=== PATIENT | female | born 1960 | race Caucasian/White ===

== ENCOUNTER 2022-09-30 11:13 | Inpatient (IN) | payer OTHER, SELFPAY ==
[2022-09-30] VITALS (32 sets, daily range): BP systolic 113–167; BP diastolic 77–104; PULSE 75–89; RESP 15–19; TEMP 36.6–36.7; O2SAT 90–98; BMI 34.5
--- NOTE | 2022-09-30 11:51 | ED_ITS ---
HPI - Abdominal Pain General: Chief Complaint: Abdominal Pain Stated Complaint: acid reflux/abd pains Time Seen by Provider: 09/30/22 11:29 History of Present Illness: 62-year-old female with a history of appendectomy and cholecystectomy who reports abdominal discomfort and belching starting yesterday. Her abdomen has gotten distended and feels like she has a lot of gas. She has continued to have nausea and belching but has not vomited. She was having diarrhea last night but it seems to have stopped this morning. The majority of her pain is periumbilical and epigastric. She has never had anything like this before. Associated Symptoms: Denies chills, dysuria, fever(s), nausea and syncope Review of Systems General: Reports: 10 or more systems reviewed and unremarkable except in HPI and below Const: Denies: fever(s), chills or body aches Eyes: Denies: change in vision ENMT: Denies: throat pain Card: Denies: chest pain, edema or syncope Resp: Denies: dyspnea or productive cough GI: Denies: nausea : Denies: flank pain, dysuria or urinary frequency Musc: Denies: neck pain, back pain, extremity pain or extremity swelling Skin/Breast: Denies: rash or erythema Neuro: Denies: headache(s), numbness in extremities, weakness in extremities, lack of coordination or difficulty walking PFS ED PFSH: Medical History (Updated 09/30/22 @ 17:23 by Erasmo Cerda MD) Asthma HTN (hypertension) Surgical History (Updated 09/30/22 @ 17:11 by Jason Alexander MD) Hx of appendectomy Hx of cholecystectomy Family History (Updated 09/30/22 @ 17:11 by Jason Alexander MD) Other CAD (coronary artery disease) Social History (Updated 09/30/22 @ 17:10 by Jason Alexander MD) Smoking and tobacco status: never smoked Alcohol intake: never Marital status: Physical Exam Const: COMMON NORMALS: no limitations, alert and well nourished EXAM LIMITATIONS: no altered mental status HENMT: COMMON NORMALS: normocephalic, atraumatic and external ears normal HEAD & SCALP: normocephalic and atraumatic EXTERNAL EAR: Yes external ears normal MOUTH: no muffled voice Eye: COMMON NORMALS: EOMs intact bilaterally, conjunctivae normal and no scleral icterus CONJUNCTIVA: Yes conjunctivae normal Neck/C-Spine: COMMON NORMALS: no JVD GENERAL: Yes normal visual inspection and Yes trachea midline Resp: COMMON NORMALS: normal respiratory effort, No use of accessory muscles and clear to auscultation bilaterally AUSCULTATION: clear to auscultation bilaterally Cardio: COMMON NORMALS: no JVD, regular rate and regular rhythm RATE: regular rate RHYTHM: regular rhythm GI: OTHER: Abdominal distention, tympany to percussion, generalized tenderness worse in the periumbilical region, diminished bowel sounds, no rebound tenderness Extremity: COMMON NORMALS: normal to inspection Neuro: COMMON NORMALS: moves all extremities, no focal motor deficits and no sensory deficits noted SENSORIUM/ORIENTATION: Yes alert SPEECH: speech normal Psych: COMMON NORMALS: mental status grossly normal, Normal thought process present, cooperative, normal affect and speech normal SPEECH: Yes normal speech THOUGHT PROCESS: Normal thought process present Skin: COMMON NORMALS: no rashes or lesions noted, turgor normal and no jaundice GENERAL SKIN EXAM: no rashes or lesions noted and turgor normal Course Vital Signs: Vital signs: Vital Signs Temperature 97.9 F 09/30/22 11:21 Pulse Rate 89 09/30/22 11:21 Respiratory Rate 18 09/30/22 13:02 Blood Pressure 142/102 09/30/22 15:45 Pulse Oximetry 97 09/30/22 15:45 Oxygen Delivery Me thod Nasal Cannula 09/30/22 13:02 Oxygen Flow Rate 1 09/30/22 13:02 MDM - Abdominal Pain Medical Decision Making 62-year-old female presents the emergency department with abdominal pain that is concerning for bowel obstruction or partial obstruction. Her risk factors would be obesity, previous cholecystectomy and appendectomy surgeries. She does not have any chronic abdominal pain and has no history of the same. I have reviewed the patient's labs. I performed a CT scan of the abdomen and pelvis. There are signs of a developing small bowel obstruction. I consulted with general surgery, Dr. Tyler. He has recommended IV fluids, n.p.o., nasogastric decompression. I then talked with the hospitalist who is going to admit the patient. Lab Data 09/30/22 12:00 09/30/22 12:00 Labs/Radiology: Radiology Impressions Abdomen/Pelvis CT 09/30/22 14:00 IMPRESSION: 1. Small bowel obstruction with transition point in the ileum LEFT lower quadrant suspicious for adhesions or internal hernia 2. Moderate dilatation of the proximal small bowel loops measuring up to 3.3 cm. Contrast distended stomach with air-fluid levels. 3. Colon is decompressed. 4. Small amount of free fluid in the pelvis. 5. Prior cholecystectomy. 6. No other acute findings. Laboratory Results WBC 12.1 10^3/uL (4.0-10.0) H 09/30/22 12:00 RBC 5.90 10^6/uL (4.1-5.3) H 09/30/22 12:00 Hgb 16.6 g/dL (11.5-15.3) H 09/30/22 12:00 Hct 52.0 % (37.0-47.0) H 09/30/22 12:00 MCV 88.1 fl (81-99) 09/30/22 12:00 MCH 28.1 pg (28.0-34.0) 09/30/22 12:00 MCHC 31.9 g/dL (30.0-36.0) 09/30/22 12:00 RDW 13.4 % (12.1-15.1) 09/30/22 12:00 Plt Count 254 10^3/cmm (130-400) 09/30/22 12:00 MPV 10.0 fL (7.4-10.4) 09/30/22 12:00 Neut % (Auto) 82.6 % 09/30/22 12:00 Lymph % (Auto) 10.8 % 09/30/22 12:00 [place] % (Auto) 5.9 % 09/30/22 12:00 Eos % (Auto) 0.3 % 09/30/22 12:00 Baso % (Auto) 0.2 % 09/30/22 12:00 Neut # (Auto) 9.98 10^3/uL (1.8-7.7) H 09/30/22 12:00 Lymph # (Auto) 1.3 10^3/uL (0.8-4.8) 09/30/22 12:00 [place] # (Auto) 0.7 10^3/uL (0.2-0.9) 09/30/22 12:00 Eos # (Auto) 0.0 10^3/uL (0.0-0.8) 09/30/22 12:00 Baso # (Auto) 0.0 10^3/uL (0.0-0.1) 09/30/22 12:00 Nucleated RBC % (auto) 0 % 09/30/22 12:00 Nucleated RBCs # 0.0 /100WBC 09/30/22 12:00 Sodium 137 mmol/L (136-145) 09/30/22 12:00 Potassium 4.5 mmol/L (3.5-5.1) 09/30/22 12:00 Chloride 101 mmol/L (98-107) 09/30/22 12:00 Carbon Dioxide 25 mmol/L (22-29) 09/30/22 12:00 Anion Gap 15.5 (5-19) 09/30/22 12:00 BUN 14 mg/dL (8-23) 09/30/22 12:00 Creatinine 0.9 mg/dL (0.5-0.9) 09/30/22 12:00 GFR Calculation 63.2 mL/min (90-130) L 09/30/22 12:00 Glucose 119 mg/dL (65-115) H 09/30/22 12:00 Calculated Osmolality 286 mOsm/kg (285-295) 09/30/22 12:00 Calcium 10.7 mg/dL (8.5-10.5) H 09/30/22 12:00 Total Bilirubin 0.5 mg/dL (0.15-1.2) 09/30/22 12:00 AST 13 U/L (0-32) 09/30/22 12:00 ALT 15 U/L (0-33) 09/30/22 12:00 Alkaline Phosphatase 88 U/L (35-105) 09/30/22 12:00 Total Protein 7.7 g/dL (6.6-8.7) 09/30/22 12:00 Albumin 4.1 g/dL (3.5-5.2) 09/30/22 12:00 Globulin 3.6 g/dL (1.3-4.6) 09/30/22 12:00 Lipase 18 U/L (13-60) 09/30/22 12:00 Discharge Plan Discharge Patient Disposition: Admitted As Inpatient Clinical Impression: Small bowel obstruction Condition: Stable Coding Level of Care Code ED [employer] Developer for Gatito Coleman
[2022-09-30 12:11] LABS: Basophils % 0.2 %; Eosinophils % 0.3 %; Hemoglobin 16.6 g/dL (11.5-15.3); Lymphocytes # 1.3 10^3/uL (0.8-4.8); Lymphocytes % 10.8 %; Mean Corpuscular HGB Conc 31.9 g/dL (30.0-36.0); Mean Corpuscular Hemoglobin 28.1 pg (28.0-34.0); Mean Corpuscular Volume 88.1 fl (81-99); Monocytes # 0.7 10^3/uL (0.2-0.9); Monocytes % 5.9 %; Neutrophils # 9.98 10^3/uL (1.8-7.7); Neutrophils % 82.6 %; Nucleated Red Blood Cells % 0 %; Platelet Count 254 10^3/cmm (130-400); Red Cell Distribution Width 13.4 % (12.1-15.1); White Blood Count 12.1 10^3/uL (4.0-10.0)
[2022-09-30] MEDS: morphine 4 mg/mL SDV 1 mL IVP (12:12)
[2022-09-30] MEDS: ondansetron 2 mg/ML SDV 2 mL 4 MG IVP (12:12)
[2022-09-30 12:33] LABS: Alanine Aminotransferase 15 U/L (0-33); Albumin Level 4.1 g/dL (3.5-5.2); Alkaline Phosphatase 88 U/L (35-105); Anion Gap 15.5 (5-19); Aspartate Amino Transferase 13 U/L (0-32); Blood Urea Nitrogen 14 mg/dL (8-23); Calcium 10.7 mg/dL (8.5-10.5); Carbon Dioxide 25 mmol/L (22-29); Chloride 101 mmol/L (98-107); Globulin 3.6 g/dL (1.3-4.6); Glomerular Filtration Rate 63.2 mL/min (90-130); Glucose 119 mg/dL (65-115); Lipase 18 U/L (13-60); Osmolality Calculated 286 mOsm/kg (285-295); Potassium 4.5 mmol/L (3.5-5.1); Sodium 137 mmol/L (136-145); Total Bilirubin 0.5 mg/dL (0.15-1.2); Total Protein 7.7 g/dL (6.6-8.7)
[2022-09-30] MEDS: iohexol 350 mg/mL 500 mL Btl (per mL) PO (13:05)
--- NOTE | 2022-09-30 14:00 | CT_ITS ---
WS: [id number] CT ABDOMEN PELVIS TECHNIQUE: Contrast-enhanced CT of the abdomen and pelvis with coronal and sagittal reformatted image s. CLINICAL INFORMATION: distention, belching, diarrhea, eval partial obstruction COMPARISON: None. DLP: 890.[address] scans at [facility] use at least one of these dose optimization techniques: automated e xposure control; mA and/or kV adjustment per patient size (includes targeted exams where dose is matc hed to clinical indication); or iterative reconstruction. FINDINGS: Distended contrast-filled stomach with air-fluid levels. Evidence of partial small bowel obstruction with moderate dilatation of the proximal small bowel loops with mild wall thickening and submucosal e nhancement. Small bowel loops measure up to 3.3 cm in maximum dimension. No pneumatosis or free air. Transition point in the ileum to more normal caliber small bowel with adjacent fluid suspicious for a dhesions or internal hernia. Axial imaging series 3 image 47 and coronal imaging series 5 image 20 Colon is decompressed. Normal ileocecal valve. Small amount of free fluid in the pelvis. Diffuse fatty infiltration liver. Prior cholecystectomy. Normal portal vein and splenic vein. Mild fa tty atrophy of the pancreas. Normal spleen. Lung bases are well aerated. Small noncalcified nodule RI GHT lower lobe measuring 4.5 mm. Adrenal glands are normal. Normal renal parenchymal enhancement. Mild cortical atrophy. Normal calibe r abdominal aorta. Celiac and SMA are patent. CT/CT abdomen pelvis w con* [id number] IMPRESSION: 1. Small bowel obstruction with transition point in the ileum LEFT lower quadr ant suspicious for adhesions or internal hernia 2. Moderate dilatation of the proximal small bowel loops measuring up to 3.3 c m. Contrast distended stomach with air-fluid levels. 3. Colon is decompressed. 4. Small amount of free fluid in the pelvis. 5. Prior cholecystectomy. 6. No other acute findings.
[2022-09-30] MEDS: iohexol 350 mg/mL 500 mL Btl (per mL) IV (14:27)
[2022-09-30] MEDS: LORazepam 2 mg/mL INJ 1 mL 0.5 MG IVP (16:42)
[2022-09-30] MEDS: fentaNYL 50 mcg/mL INJ 2mL IVP (16:42)
[2022-09-30] MEDS: sodium chloride 0.9% 1,000 ML 125 ML IV (16:43)
--- NOTE | 2022-09-30 20:50 | PM.HP ---
Providers/Chief Complaint Admitting Physician: Jason Alexander Primary Care Provider: Ismael Mustafa DO Chief Complaint: acid reflux/abd pains History of Present Illness Pleasant 62-year-old lady with remote history of cholecystectomy, appendectomy since Wednesday experiencing abdominal distention, nausea, abdominal pain, also had some diarrhea black in color but this has resolved. CT in ER showing small bowel obstruction with transition point in ileum in the left lower quadrant, moderate dilation of proximal small bowel loops measuring 3.3 cm. Contrast distended stomach with air-fluid levels. Colon decompressed. Small amount of free fluid in pelvis. Prior cholecystectomy. Surgery was consulted and NG tube placed in ER. She is currently without any major pain or discomfort. Some nausea. Has not vomited. Review of Systems Const: Denies: fever(s), chills, body aches or malaise ENMT: Denies: throat pain or ear or mastoid pain Card: Denies: chest pain, edema, pre-syncope or dyspnea on exertion Resp: Denies: dyspnea, productive cough, change in phlegm color or hemoptysis GI: Denies: abdominal pain, nausea, vomiting, diarrhea, constipation, hematochezia or melena : Denies: flank pain, urinary frequency or hematuria Musc: Denies: back pain, joint swelling or joint redness Skin/Breast: Denies: rash or new lesions Neuro: Denies: headache(s) Endo: Denies: polyuria or polydipsia Medications/Allergies Home Medications Medication Instructions Recorded Confirmed Last Taken Type acetaminophen 500 mg tablet 500 mg PO Q6H PRN Pain 09/30/22 09/30/22 Unknown History amoxicillin 875 mg-potassium 1 tab PO BID 09/30/22 09/30/22 Unknown History clavulanate 125 mg tablet coffee extract 100 mg-phosphatidyl 1 cap PO QAM 09/30/22 09/30/22 Unknown History serine 100 mg capsule (Neuriva Original) cyanocobalamin (vitamin B-12) 1,000 mcg PO DAILY 09/30/22 09/30/22 1 Week Ago History 1,000 mcg tablet (Vitamin B-12) ~09/23/22 fluticasone 250 mcg-salmeterol 50 1 inh inhalation BID 09/30/22 09/30/22 Unknown History mcg/dose blistr powdr for inhalation (Advair Diskus) multivitamin 1 tab PO DAILY 09/30/22 09/30/22 09/26/22 History turmeric 400 mg capsule 800 mg PO DAILY 09/30/22 09/30/22 Unknown History vitamin B complex 1 tab PO DAILY 09/30/22 09/30/22 Unknown History Allergies Allergy/AdvReac Type Severity Reaction Status Date / Time No Known Allergies Allergy Verified 09/30/22 12:43 PFSH Acute PFSH: Medical History Asthma HTN (hypertension) Surgical History Hx of appendectomy Hx of cholecystectomy Family History Other CAD (coronary artery disease) Social History Smoking and tobacco status: never smoked Alcohol intake: never Marital status: Vitals/I&O/Wt Last Vital Signs Temp 97.9 F 09/30/22 11:21 Pulse 89 09/30/22 11:21 Resp 18 09/30/22 13:02 BP 122/81 09/30/22 20:00 Pulse Ox 95 09/30/22 20:00 O2 Del Method Nasal Cannula 09/30/22 20:21 O2 Flow Rate 1 09/30/22 13:02 09/30/22 09/30/22 09/30/22 06:59 14:59 22:59 Intake Total 1000 / 1000 Balance 1000 / 1000 Weight last 48 hrs Weight 88.451 kg Physical Exam Const: COMMON NORMALS: patient oriented x3 and alert GENERAL APPEARANCE: cooperative ORIENTATION/CONSCIOUSNESS: Yes awake HENMT: COMMON NORMALS: oropharynx normal Neck/C-Spine: COMMON NORMALS: no JVD Resp: COMMON NORMALS: normal respiratory effort and clear to auscultation bilaterally AUSCULTATION: clear to auscultation bilaterally Cardio: COMMON NORMALS: no JVD, regular rhythm, S1 normal heart sound present, S2 normal heart sound present and No murmurs present (Cardio) RHYTHM: regular rhythm HEART SOUNDS: S1 normal heart sound present and S2 normal heart sound present GI: COMMON NORMALS: Normal to inspection, nondistended, normoactive bowel sounds present and Soft to palpation INSPECTION: Yes abdominal distension PALPATION: Yes Soft to palpation and Yes Other GI palpation findings present (Minimal tenderness on palpation) Extremity: COMMON NORMALS: no joint enlargement and no pedal edema Neuro: COMMON NORMALS: patient oriented x3 and moves all extremities SENSORIUM/ORIENTATION: Yes alert Skin: COMMON NORMALS: no rashes or lesions noted GENERAL SKIN EXAM: no rashes or lesions noted Data 09/30/22 12:00 09/30/22 12:00 A&P Assessment and plan (1) Small bowel obstruction: Surgery consultation. Bowel rest. NGT decompression. IVF. Antiemetic, pain medication. Discussed with her smaller concern for possibility of volvulus with black diarrhea, discussed with her reason for concern if it were volvulus, she will let us know in case any worsening of symptoms or return of diarrhea which so far she has not had. Currently tenderness is minimal. Leukocytosis without any other signs of sepsis. Lactate requested. Discussed with ER physician, surgery. ER documentation reviewed. No vomiting. Electrolytes noted WNL. Renal function noted WNL. Liver parameters WNL. Lipase WNL. Follow-up CBC, chemistry given on NGT at risk of electrolyte abnormality. Cardiac monitoring. Plan HTN: Currently NPO. Monitor blood pressures. Does not appear to be on HTN medications at home. Currently blood pressure at target. Asthma: Budesonide. Albuterol nebs as needed. Not in exacerbation. Attestations Medical Necessity Statement*: Admission of over 2 midnights anticipated for assessment management of SBO. Diagnoses Small bowel obstruction K56.609
--- NOTE | 2022-09-30 22:00 | XRR_ITS ---
PROCEDURE INFORMATION: Exam: XR Chest Exam date and time: 09/30/2022 9:57 PM Age: 62 years old Clinical indication: Device placement; Ng tube; Additional info: Ngt placement TECHNIQUE: Imaging protocol: Radiologic exam of the chest. Views: 1 view. COMPARISON: CT abdomen pelvis w con* [id number] 09/30/2022 2:26 PM FINDINGS: Tubes, catheters and devices: A nasogastric tube ends the stomach. Lungs: Unremarkable. No consolidation. Pleural spaces: Unremarkable. No pleural effusion. No pneumothorax. Heart/Mediastinum: Unremarkable. No cardiomegaly. Bones/joints: Unremarkable. XR/XR chest 1V portable [id number] IMPRESSION: NG tube ends in the stomach
[2022-10-01] VITALS (9 sets, daily range): BP systolic 117–149; BP diastolic 71–86; PULSE 58–85; RESP 15–18; TEMP 36.7–36.9; O2SAT 92–98
[2022-10-01] MEDS: sodium chloride 0.9% 1,000 ML 125 ML IV ×3 (00:16→16:55)
[2022-10-01 05:06] LABS: Basophils % 0.4 %; Eosinophils # 0.2 10^3/uL (0.0-0.8); Eosinophils % 2.2 %; Hematocrit 46.4 % (37.0-47.0); Hemoglobin 14.3 g/dL (11.5-15.3); Lymphocytes # 1.3 10^3/uL (0.8-4.8); Lymphocytes % 17.8 %; Mean Corpuscular HGB Conc 30.8 g/dL (30.0-36.0); Mean Corpuscular Hemoglobin 27.9 pg (28.0-34.0); Mean Corpuscular Volume 90.6 fl (81-99); Mean Platelet Volume 10.1 fL (7.4-10.4); Monocytes # 0.7 10^3/uL (0.2-0.9); Monocytes % 9.2 %; Neutrophils # 5.05 10^3/uL (1.8-7.7); Neutrophils % 70.3 %; Nucleated Red Blood Cells % 0 %; Platelet Count 202 10^3/cmm (130-400); Red Blood Count 5.12 10^6/uL (4.1-5.3); Red Cell Distribution Width 13.3 % (12.1-15.1); White Blood Count 7.2 10^3/uL (4.0-10.0)
[2022-10-01 05:23] LABS: Alanine Aminotransferase 15 U/L (0-33); Albumin Level 3.1 g/dL (3.5-5.2); Alkaline Phosphatase 70 U/L (35-105); Aspartate Amino Transferase 14 U/L (0-32); Blood Urea Nitrogen 12 mg/dL (8-23); Calcium 9.3 mg/dL (8.5-10.5); Carbon Dioxide 21 mmol/L (22-29); Chloride 102 mmol/L (98-107); Glomerular Filtration Rate 72.4 mL/min (90-130); Glucose 86 mg/dL (65-115); Osmolality Calculated 277 mOsm/kg (285-295); Sodium 134 mmol/L (136-145); Total Bilirubin 0.5 mg/dL (0.15-1.2); Total Protein 6.1 g/dL (6.6-8.7)
[2022-10-01 05:24] LABS: Anion Gap 15.8 (5-19); Potassium 4.8 mmol/L (3.5-5.1)
--- NOTE | 2022-10-01 11:58 | PM.CONSULT ---
Providers/Reason For Consult Consulting Physician/Specialty*: Dr. Sheldon Tyler DO/General surgery Reason for Consult*: Small bowel obstruction Attending Physician: Jason Alexander Primary Care Provider: Ismael Mustafa DO History of Present Illness History of Present Illness Ruthie López is a 62 year old female with a history of cholecystectomy and appendectomy about 20 years ago, who presented to the hospital with 1 day history of abdominal pain and nausea. She denies any emesis. She reports that she has not passed any flatus or had a bowel movement since yesterday. Her last bowel movement was dark but she denies any hematochezia and/or melena. Her abdominal pain is diffuse and dull and constant. Palpation makes pain worse. Nothing makes pain better. Review of Systems General: Reports: 10 or more systems reviewed and unremarkable except in HPI and below Medications/Allergies Home Medications Medication Instructions Recorded Confirmed Last Taken Type acetaminophen 500 mg tablet 500 mg PO Q6H PRN Pain 09/30/22 09/30/22 Unknown History amoxicillin 875 mg-potassium 1 tab PO BID 09/30/22 09/30/22 Unknown History clavulanate 125 mg tablet coffee extract 100 mg-phosphatidyl 1 cap PO QAM 09/30/22 09/30/22 Unknown History serine 100 mg capsule (Neuriva Original) cyanocobalamin (vitamin B-12) 1,000 mcg PO DAILY 09/30/22 09/30/22 1 Week Ago History 1,000 mcg tablet (Vitamin B-12) ~09/23/22 fluticasone 250 mcg-salmeterol 50 1 inh inhalation BID 09/30/22 09/30/22 Unknown History mcg/dose blistr powdr for inhalation (Advair Diskus) multivitamin 1 tab PO DAILY 09/30/22 09/30/22 09/26/22 History turmeric 400 mg capsule 800 mg PO DAILY 09/30/22 09/30/22 Unknown History vitamin B complex 1 tab PO DAILY 09/30/22 09/30/22 Unknown History Allergies Allergy/AdvReac Type Severity Reaction Status Date / Time No Known Allergies Allergy Verified 09/30/22 12:43 Current Medications Generic Name Dose Route Start Last Admin Trade Name Freq PRN Reason Stop Dose Admin Sodium Chloride 1,000 mls @ 125 mls/hr 09/30/22 16:00 10/01/22 08:54 Sodium Chloride 0.9% IV 125 mls/hr .Q8H NIURKA Administration PFSH Acute PFSH: Medical History Asthma HTN (hypertension) Surgical History Hx of appendectomy Hx of cholecystectomy Family History Other CAD (coronary artery disease) Social History Smoking and tobacco status: never smoked Alcohol intake: never Marital status: Vitals/I&O/Wt Last Vital Signs Temp 98.2 F 10/01/22 11:46 Pulse 69 10/01/22 11:46 Resp 16 10/01/22 11:46 BP 129/84 10/01/22 11:46 Pulse Ox 93 10/01/22 11:46 O2 Del Method Nasal Cannula 10/01/22 11:46 O2 Flow Rate 2 10/01/22 03:54 09/30/22 10/01/22 10/01/22 22:59 06:59 14:59 Intake Total 1000 / 1000 1000 / 1000 Output Total 170 / 172 170 / 170 Balance 998 / 998 -170 / 828 830 / 830 Weight last 48 hrs Weight 195 lb Physical Exam Narrative: General : Patient is well developed , no acute distress, oriented x3 Head : Normal cephalic, a-traumatic. Ears : Pinnae and external canal are normal. Hearing is normal. Eyes : PERRLA, Sclera and injection are normal. No conjunctival discharge. Nose : Mucous membranes are without erythema. Throat : buccal mucosa is normal, gums are without significant recession or hypertrophy. Lungs : Equal chest rise bilaterally, no use of accessory muscles, trachea is midline. Cor : Rate and rhythm are normal. Abdomen : Soft, mild distention, mild periumbilical tenderness, no g/r/m Extremities : No edema, no cyanosis or clubbing, dorsalis pedis pulses are present bilaterally, non-tender to palpation of calves. Upper extremities are normal bilaterally. Back : non-tender to palpation, no CVA tenderness. Neuro : CN II - XII intact, Upper and lower extremities have equal and full strength Data 10/01/22 04:29 10/01/22 04:29 A&P Assessment and plan (1) Small bowel obstruction: Plan N.p.o. NGT to low intermittent suction IV fluids to 150 cc/h Medical management per hospitalist Conservative management for now. If patient does not open up in the next couple of days, we will have to consider surgery. Coding Level of Care Code Acute Code for Chg Fwd Diagnoses Small bowel obstruction K56.609
--- NOTE | 2022-10-01 12:31 | PC.CHAP ---
Pastoral Care Encounter/Spiritual Assessment Type of Contact [] Declined metal grinder visit [] Patient/Family/Request visit [] Outpatient visit [x] Follow-up visit [] Physician referral [] Code/Alert [] Routine visit [] Staff referral [] Actively dying [] Patient sleeping [] Family support [] [] Out of room [] Palliative care [] [] Receiving care in room [] Pre-surgical visit [] Trauma [] Long length of stay [] ICU visit [] Other: Relational/Emotional Strength [] Patient feels connected with others/family/visitors/staff [] Distress [] Loneliness/isolation [] Abandonment Spirituality of Patient [] Person of Christine [] Attends Judaism of their Christine [] Believes in Prayer [] Reads Bible or Baptist materials [] There are Spiritual issues to be addressed [place] Interventions [] Prayer [] Active listening [] Non-anxious presence [] Spiritual/emotional support [] Crisis/trauma care [] Spiritual counseling [] Bereavement support [] Provided bereavement packet [] Provided Bible/devotional materials [] Provided toy/stuffed animal, coloring book to patient or family member [] Provided Communion [] Anointing/[place] [] Salvation [] Completed spiritual assessment [] Other: Impact on Illness or Injury [] Angry [] Fearful [] Anxious [] Often cries [] Exhaustion [] Unable to work [] Unable to attend orthodox [] Unable to walk/stand [] Unable to read [] Unable to drive [] Unable to eat/drink [] Unable to sleep [] Unable to be with family [] Patient intubated [] Other: Summary Follow-up visit a sleep Time spent with patient 10 mins
--- NOTE | 2022-10-01 21:40 | PM.PN ---
Subjective Subjective: Was seen and assessed by surgery and discussed management options. She is feeling better today. Abdominal pain improved. Still belching quite a bit. No gas from below. Vitals/I&O/Wt Last Vital Signs Temp 98.4 F 10/01/22 19:06 Pulse 71 10/01/22 19:06 Resp 16 10/01/22 19:06 BP 132/80 10/01/22 19:06 Pulse Ox 96 10/01/22 19:06 O2 Del Method Nasal Cannula 10/01/22 19:06 O2 Flow Rate 2 10/01/22 19:30 10/01/22 10/01/22 10/01/22 06:59 14:59 22:59 Intake Total 1000 / 1000 1000 / 2000 Output Total 170 / 172 170 / 170 500 / 670 Balance -170 / 828 830 / 830 500 / 1330 Weight last 48 hrs Weight 88.451 kg Physical Exam Const: COMMON NORMALS: patient oriented x3, no limitations, alert and well nourished EXAM LIMITATIONS: no altered mental status GENERAL APPEARANCE: cooperative ORIENTATION/CONSCIOUSNESS: Yes awake HENMT: COMMON NORMALS: normocephalic, atraumatic and oropharynx normal HEAD & SCALP: normocephalic and atraumatic Eye: COMMON NORMALS: EOMs intact bilaterally, conjunctivae normal and no scleral icterus CONJUNCTIVA: Yes conjunctivae normal Neck/C-Spine: COMMON NORMALS: no JVD GENERAL: Yes normal visual inspection Resp: COMMON NORMALS: normal respiratory effort, No use of accessory muscles and clear to auscultation bilaterally AUSCULTATION: clear to auscultation bilaterally Cardio: COMMON NORMALS: no JVD, regular rate, regular rhythm, S1 normal heart sound present, S2 normal heart sound present and No murmurs present (Cardio) RATE: regular rate RHYTHM: regular rhythm HEART SOUNDS: S1 normal heart sound present and S2 normal heart sound present GI: COMMON NORMALS: Normal to inspection, nondistended, normoactive bowel sounds present and Soft to palpation INSPECTION: Yes abdominal distension PALPATION: Yes Soft to palpation and Yes Other GI palpation findings present (Minimal tenderness on palpation) Extremity: COMMON NORMALS: normal to inspection, no joint enlargement and no pedal edema Neuro: COMMON NORMALS: patient oriented x3, moves all extremities, no focal motor deficits and no sensory deficits noted SENSORIUM/ORIENTATION: Yes alert SPEECH: speech normal Psych: COMMON NORMALS: mental status grossly normal, Normal thought process present, cooperative, normal affect and speech normal SPEECH: Yes normal speech THOUGHT PROCESS: Normal thought process present Skin: COMMON NORMALS: no rashes or lesions noted, turgor normal and no jaundice GENERAL SKIN EXAM: no rashes or lesions noted and turgor normal Data 10/01/22 04:29 10/01/22 04:29 A&P Assessment and plan (1) Small bowel obstruction: Surgery discussion and documentation appreciated. Continue bowel rest, decompression, she might try to ambulate today. IV hydration support. Antiemetic, pain control as needed. Leukocytosis noted resolved, WBC 7.2. Hemoglobin with slight decrease to 14.3, suspect dilutional decrease. At risk of electrolyte deficiencies with NGT suction. Follow-up chemistry requested. Check magnesium. Cardiac monitoring. Plan HTN: Currently NPO.? Monitor blood pressures.? Does not appear to be on HTN medications at home.? Currently blood pressure at target. Asthma: Add budesonide.? Albuterol nebs as needed.? Not in exacerbation. Attestations Medical Necessity Statement*: Continue admission for assessment management of SBO Diagnoses Small bowel obstruction K56.609
[2022-10-02] VITALS (9 sets, daily range): BP systolic 134–146; BP diastolic 78–85; PULSE 66–81; RESP 12–20; TEMP 36.5–37.1; O2SAT 92–95
[2022-10-02] MEDS: sodium chloride 0.9% 1,000 ML 125 ML IV ×2 (01:13→07:46)
[2022-10-02 02:06] LABS: Basophils % 0.4 %; Eosinophils # 0.2 10^3/uL (0.0-0.8); Eosinophils % 1.9 %; Hematocrit 40.9 % (37.0-47.0); Hemoglobin 12.9 g/dL (11.5-15.3); Lymphocytes # 1.4 10^3/uL (0.8-4.8); Lymphocytes % 16.9 %; Mean Corpuscular HGB Conc 31.5 g/dL (30.0-36.0); Mean Corpuscular Hemoglobin 28.5 pg (28.0-34.0); Mean Corpuscular Volume 90.5 fl (81-99); Mean Platelet Volume 9.7 fL (7.4-10.4); Monocytes # 0.6 10^3/uL (0.2-0.9); Monocytes % 6.9 %; Neutrophils # 5.91 10^3/uL (1.8-7.7); Neutrophils % 73.7 %; Nucleated Red Blood Cells % 0 %; Platelet Count 176 10^3/cmm (130-400); Red Blood Count 4.52 10^6/uL (4.1-5.3); Red Cell Distribution Width 13.2 % (12.1-15.1)
[2022-10-02 02:30] LABS: Alanine Aminotransferase 14 U/L (0-33); Albumin Level 3.2 g/dL (3.5-5.2); Alkaline Phosphatase 64 U/L (35-105); Anion Gap 14.3 (5-19); Aspartate Amino Transferase 12 U/L (0-32); Blood Urea Nitrogen 12 mg/dL (8-23); Calcium 8.9 mg/dL (8.5-10.5); Carbon Dioxide 25 mmol/L (22-29); Chloride 104 mmol/L (98-107); Globulin 2.1 g/dL (1.3-4.6); Glomerular Filtration Rate 84.5 mL/min (90-130); Glucose 68 mg/dL (65-115); Osmolality Calculated 286 mOsm/kg (285-295); Potassium 4.3 mmol/L (3.5-5.1); Sodium 139 mmol/L (136-145); Total Bilirubin 0.5 mg/dL (0.15-1.2); Total Protein 5.3 g/dL (6.6-8.7)
--- NOTE | 2022-10-02 16:06 | PM.PN ---
Subjective Subjective: Patient now passing flatus and had a small bowel movement this morning. Vitals/I&O/Wt Last Vital Signs Temp 98.3 F 10/02/22 15:37 Pulse 71 10/02/22 15:37 Resp 16 10/02/22 15:37 BP 142/81 10/02/22 15:37 Pulse Ox 95 10/02/22 15:37 O2 Del Method Room Air 10/02/22 15:37 O2 Flow Rate 2 10/02/22 08:00 10/02/22 10/02/22 10/02/22 06:59 14:59 22:59 Intake Total 1000 / 3000 818.75 / 818.75 1000 / 1818.75 Output Total 700 / 1370 Balance 300 / 1630 818.75 / 818.75 1000 / 1818.75 Physical Exam Narrative: General: No acute distress, awake alert and oriented x3 Abdomen: Soft, nontender, nondistended, no guarding rebound or masses Data 10/02/22 01:56 10/02/22 01:56 Micro: Microbiology 10/02/22 07:05 Occult Blood (FIT) - Final Stool Routine Collection A&P Assessment and plan (1) Small bowel obstruction: Plan DC NG tube Clear liquid diet IV fluids to 150 cc/h Medical management per hospitalist Conservative management for now. If patient does not open up in the next couple of days, we will have to consider surgery. Attestations Medical Necessity Statement*: Per primary Coding Level of Care Code Acute Code for Chg Fwd Diagnoses Small bowel obstruction K56.609
--- NOTE | 2022-10-02 18:25 | PM.PN ---
Subjective Subjective: Had a small BM this morning. Reports passing flatus. She has been ambulating multiple times a day. Vitals/I&O/Wt Last Vital Signs Temp 98.3 F 10/02/22 15:37 Pulse 71 10/02/22 15:37 Resp 16 10/02/22 15:37 BP 142/81 10/02/22 15:37 Pulse Ox 95 10/02/22 15:37 O2 Del Method Room Air 10/02/22 15:37 O2 Flow Rate 2 10/02/22 08:00 10/02/22 10/02/22 10/02/22 06:59 14:59 22:59 Intake Total 1000 / 3000 818.75 / 818.75 1000 / 1818.75 Output Total 700 / 1370 Balance 300 / 1630 818.75 / 818.75 1000 / 1818.75 Physical Exam Const: COMMON NORMALS: patient oriented x3 and alert GENERAL APPEARANCE: cooperative ORIENTATION/CONSCIOUSNESS: Yes awake HENMT: COMMON NORMALS: oropharynx normal Neck/C-Spine: COMMON NORMALS: no JVD Resp: COMMON NORMALS: normal respiratory effort and clear to auscultation bilaterally AUSCULTATION: clear to auscultation bilaterally Cardio: COMMON NORMALS: no JVD, regular rhythm, S1 normal heart sound present, S2 normal heart sound present and No murmurs present (Cardio) RHYTHM: regular rhythm HEART SOUNDS: S1 normal heart sound present and S2 normal heart sound present GI: COMMON NORMALS: Soft to palpation and non-tender PALPATION: Yes Soft to palpation OTHER: Mild distention Extremity: COMMON NORMALS: no joint enlargement and no pedal edema Neuro: COMMON NORMALS: patient oriented x3 and moves all extremities SENSORIUM/ORIENTATION: Yes alert Skin: COMMON NORMALS: no rashes or lesions noted GENERAL SKIN EXAM: no rashes or lesions noted Data 10/02/22 01:56 10/02/22 01:56 Micro: Microbiology 10/02/22 07:05 Occult Blood (FIT) - Final Stool Routine Collection A&P Assessment and plan (1) Small bowel obstruction: Still having output from NG, but producing flatus and had a small BM. Has been ambulating multiple times a day. Abdominal tenderness appears so far has resolved. Discussed with surgery later in the day her NG has been removed. She is started on trial of clears. Reassess condition. Reassess chemistry in the morning. Leukocytosis noted resolved, WBC reviewed noted 8. Hemoglobin mild decrease to 12.9, follow-up CBC requested. Magnesium noted 2. Cardiac monitoring. Stop morphine. Stop IV fluid. Plan HTN: Blood pressures close to target, today up to 146/85. Cardiac diet once resumes. Should continue to monitor at home, follow-up with PCP. Asthma: budesonide.? Albuterol nebs as needed.? Not in exacerbation. Attestations Medical Necessity Statement*: Continue admission for assessment and management after SBO. Diagnoses Small bowel obstruction K56.606
[2022-10-03] VITALS (7 sets, daily range): BP systolic 121–142; BP diastolic 80–83; PULSE 58–70; RESP 16–18; TEMP 36.7–37.2; O2SAT 92–93
[2022-10-03 03:27] LABS: Basophils % 0.4 %; Eosinophils # 0.2 10^3/uL (0.0-0.8); Eosinophils % 2.3 %; Hematocrit 41.3 % (37.0-47.0); Hemoglobin 12.9 g/dL (11.5-15.3); Lymphocytes # 1.3 10^3/uL (0.8-4.8); Lymphocytes % 18.7 %; Mean Corpuscular HGB Conc 31.2 g/dL (30.0-36.0); Mean Corpuscular Hemoglobin 27.6 pg (28.0-34.0); Mean Corpuscular Volume 88.2 fl (81-99); Mean Platelet Volume 10.5 fL (7.4-10.4); Monocytes # 0.7 10^3/uL (0.2-0.9); Monocytes % 9.5 %; Neutrophils # 4.79 10^3/uL (1.8-7.7); Nucleated Red Blood Cells % 0 %; Platelet Count 196 10^3/cmm (130-400); Red Blood Count 4.68 10^6/uL (4.1-5.3); Red Cell Distribution Width 13.1 % (12.1-15.1)
[2022-10-03 03:54] LABS: Alanine Aminotransferase 12 U/L (0-33); Albumin Level 3.2 g/dL (3.5-5.2); Alkaline Phosphatase 63 U/L (35-105); Aspartate Amino Transferase 11 U/L (0-32); Blood Urea Nitrogen 10 mg/dL (8-23); Calcium 9.3 mg/dL (8.5-10.5); Carbon Dioxide 26 mmol/L (22-29); Chloride 101 mmol/L (98-107); Globulin 2.6 g/dL (1.3-4.6); Glomerular Filtration Rate 84.5 mL/min (90-130); Glucose 77 mg/dL (65-115); Osmolality Calculated 280 mOsm/kg (285-295); Sodium 136 mmol/L (136-145); Total Bilirubin 0.6 mg/dL (0.15-1.2); Total Protein 5.8 g/dL (6.6-8.7)
--- NOTE | 2022-10-03 11:57 | P.DS_ITS ---
Discharge Providers Date of Admission: 09/30/22 20:06 Date of Discharge: October 03, 2022 Attending Provider at Admission: Jason Alexander Attending Provider at Discharge: Jason Alexander Primary Care Provider: Ismael Mustafa DO Diagnoses at Discharge Discharge Diagnosis (1) Small bowel obstruction: Status: Acute Reason for Visit Reason for Visit: acid reflux/abd pains Hospital Course Hospital Course Pleasant 62-year-old lady was admitted and managed for partial small bowel obstruction with bowel rest, NG decompression, IV hydration, ambulated while in the hospital. Possible transition point mentioned on CT on presentation, but not obvious as per discussion with surgery. Small bowel obstruction resolved. She is tolerating clear liquids. Is doing well. Abdominal pain initially and some loose stool she reported initially black, had resolved, lactate was normal, hemoglobin remained stable, no recurrence of diarrhea melena or hematochezia. She is asked to follow-up with surgery in office. Physical Exam Narrative: Awake, alert, sitting up in bed, in very good spirits. Feeling very well, ate without any issues, has been ambulating. Ready to return home. Discussed with surgery. Const: COMMON NORMALS: patient oriented x3 and alert GENERAL APPEARANCE: cooperative ORIENTATION/CONSCIOUSNESS: Yes awake HENMT: COMMON NORMALS: oropharynx normal Neck/C-Spine: COMMON NORMALS: no JVD Resp: COMMON NORMALS: normal respiratory effort and clear to auscultation bilaterally AUSCULTATION: clear to auscultation bilaterally Cardio: COMMON NORMALS: no JVD, regular rhythm, S1 normal heart sound present, S2 normal heart sound present and No murmurs present (Cardio) RHYTHM: regular rhythm HEART SOUNDS: S1 normal heart sound present and S2 normal heart sound present GI: COMMON NORMALS: Normal to inspection, nondistended, normoactive bowel sounds present, Soft to palpation and non-tender PALPATION: Yes Soft to palpation Extremity: COMMON NORMALS: no joint enlargement and no pedal edema Neuro: COMMON NORMALS: patient oriented x3 and moves all extremities SENSORIUM/ORIENTATION: Yes alert Skin: COMMON NORMALS: no rashes or lesions noted GENERAL SKIN EXAM: no rashes or lesions noted Discharge Data Studies Completed and Pending Completed Studies During Hospitalization Category Date Time Status CT abdomen pelvis w con* [id number] Stat Cat Scan 09/30/22 14:00 Completed CXRP [XR chest 1V portable [id number]] Stat Exams 09/30/22 22:00 Completed Radiology Impressions Abdomen/Pelvis CT 09/30/22 14:00 IMPRESSION: 1. Small bowel obstruction with transition point in the ileum LEFT lower quadrant suspicious for adhesions or internal hernia 2. Moderate dilatation of the proximal small bowel loops measuring up to 3.3 cm. Contrast distended stomach with air-fluid levels. 3. Colon is decompressed. 4. Small amount of free fluid in the pelvis. 5. Prior cholecystectomy. 6. No other acute findings. Chest X-Ray 09/30/22 22:00 IMPRESSION: NG tube ends in the stomach Laboratory Results WBC 7.0 10^3/uL (4.0-10.0) 10/03/22 02:14 RBC 4.68 10^6/uL (4.1-5.3) 10/03/22 02:14 Hgb 12.9 g/dL (11.5-15.3) 10/03/22 02:14 Hct 41.3 % (37.0-47.0) 10/03/22 02:14 MCV 88.2 fl (81-99) 10/03/22 02:14 MCH 27.6 pg (28.0-34.0) L 10/03/22 02:14 MCHC 31.2 g/dL (30.0-36.0) 10/03/22 02:14 RDW 13.1 % (12.1-15.1) 10/03/22 02:14 Plt Count 196 10^3/cmm (130-400) 10/03/22 02:14 MPV 10.5 fL (7.4-10.4) H 10/03/22 02:14 Neut % (Auto) 69.0 % 10/03/22 02:14 Lymph % (Auto) 18.7 % 10/03/22 02:14 [place] % (Auto) 9.5 % 10/03/22 02:14 Eos % (Auto) 2.3 % 10/03/22 02:14 Baso % (Auto) 0.4 % 10/03/22 02:14 Neut # (Auto) 4.79 10^3/uL (1.8-7.7) 10/03/22 02:14 Lymph # (Auto) 1.3 10^3/uL (0.8-4.8) 10/03/22 02:14 [place] # (Auto) 0.7 10^3/uL (0.2-0.9) 10/03/22 02:14 Eos # (Auto) 0.2 10^3/uL (0.0-0.8) 10/03/22 02:14 Baso # (Auto) 0.0 10^3/uL (0.0-0.1) 10/03/22 02:14 Nucleated RBC % (auto) 0 % 10/03/22 02:14 Nucleated RBCs # 0.0 /100WBC 10/03/22 02:14 Sodium 136 mmol/L (136-145) 10/03/22 02:14 Potassium 4.0 mmol/L (3.5-5.1) 10/03/22 02:14 Chloride 101 mmol/L (98-107) 10/03/22 02:14 Carbon Dioxide 26 mmol/L (22-29) 10/03/22 02:14 Anion Gap 13.0 (5-19) 10/03/22 02:14 BUN 10 mg/dL (8-23) 10/03/22 02:14 Creatinine 0.7 mg/dL (0.5-0.9) 10/03/22 02:14 GFR Calculation 84.5 mL/min (90-130) L 10/03/22 02:14 Glucose 77 mg/dL (65-115) 10/03/22 02:14 Calculated Osmolality 280 mOsm/kg (285-295) L 10/03/22 02:14 Lactate 1.0 mmol/L (0.5-2.2) 09/30/22 19:47 Calcium 9.3 mg/dL (8.5-10.5) 10/03/22 02:14 Magnesium 2.0 mg/dL (1.7-2.3) 10/02/22 01:56 Total Bilirubin 0.6 mg/dL (0.15-1.2) 10/03/22 02:14 AST 11 U/L (0-32) 10/03/22 02:14 ALT 12 U/L (0-33) 10/03/22 02:14 Alkaline Phosphatase 63 U/L (35-105) 10/03/22 02:14 Total Protein 5.8 g/dL (6.6-8.7) L 10/03/22 02:14 Albumin 3.2 g/dL (3.5-5.2) L 10/03/22 02:14 Globulin 2.6 g/dL (1.3-4.6) 10/03/22 02:14 Lipase 18 U/L (13-60) 09/30/22 12:00 Vitals Last Vital Signs Temp 98.3 F 10/03/22 11:53 Pulse 61 10/03/22 11:53 Resp 18 10/03/22 11:53 BP 121/81 10/03/22 11:53 Pulse Ox 93 10/03/22 11:53 O2 Del Method Room Air 10/03/22 11:53 O2 Flow Rate 2 10/03/22 08:00 Discharge Plan Discharge Patient Disposition: Home Condition: Stable Prescriptions: Continued multivitamin Tablet 1 tab PO DAILY Advair Diskus 250-50 mcg/dose Blister With Device 1 inh INHALATION BID Vitamin B-12 1,000 mcg Tablet 1,000 mcg PO DAILY Tylenol Ex Str Rapid Release 500 mg Tablet 500 mg PO Q6H PRN (Reason: Pain) vitamin B complex Tablet 1 tab PO DAILY turmeric 400 mg Capsule 800 mg PO DAILY Neuriva Original 100-100 mg Capsule 1 cap PO QAM Discontinued Augmentin 875-125 mg Tablet 1 tab PO BID Rx Instructions: (rx filled 09/30/22 pt not picked up from pharmacy) Discharge Orders: Discharge Order (Routine); Ordered 10/03/22 Ordered By: Jason Alexander Referrals: Sheldon Tyler DO [Physician] - 2 weeks Ismael Mustafa DO [Primary Care Provider] - (per existing appt on [facility]) Patient Instructions: Bowel Obstruction (GEN) Activity Restrictions/Additional Instructions: Follow-up with your primary provider for reassessment of resolution of partial small bowel obstruction. Take small meals spaced through the day as discussed. Avoid dehydration. Consider stool softener. Follow-up with surgery. Return to the hospital in case of any return of abdominal pain, vomiting, any dark or bloody stools or any other concerning symptoms. Continue to monitor blood pressures at home twice daily, write down values. Follow-up with your primary doctor regarding management of chronic conditions including hypertension, asthma, etc. Discharge Attestations Time Spent in Discharge Care*: greater than 30 min Quality Metrics Clinical Quality Measures [ No reported AMI, CVA or VTE this stay] Coding Level of Care Code 21638 Total time (in minutes) for Discharge: 35 Diagnoses Small bowel obstruction K56.609
--- NOTE | 2022-10-03 13:50 | PM.PN ---
Subjective Subjective: Tolerating soft diet and having bowel movements. Vitals/I&O/Wt Last Vital Signs Temp 98.3 F 10/03/22 11:53 Pulse 61 10/03/22 11:53 Resp 18 10/03/22 11:53 BP 121/81 10/03/22 11:53 Pulse Ox 93 10/03/22 11:53 O2 Del Method Room Air 10/03/22 11:53 O2 Flow Rate 2 10/03/22 08:00 10/02/22 10/03/22 10/03/22 22:59 06:59 14:59 Intake Total 2078 / 2896.75 480 / 480 Output Total 400 / 400 Balance 1678 / 2496.75 480 / 480 Physical Exam Narrative: General: No acute distress, awake alert and oriented x3 Abdomen: Soft, nontender, nondistended, no guarding rebound or masses Data 10/03/22 02:14 10/03/22 02:14 Micro: Microbiology 10/02/22 07:05 Occult Blood (FIT) - Final Stool Routine Collection A&P Assessment and plan (1) Small bowel obstruction: Plan Soft diet Surgically stable for discharge Follow-up in my office in 2 weeks Attestations Medical Necessity Statement*: Patient being discharged Coding Level of Care Code Acute Code for Chg Fwd Diagnoses Small bowel obstruction K56.609
== END 2022-10-03 15:21 | disposition home or self-care (01) | DRG 390 ==
LOC: ER 19:17 → MEDSURG 20:10
PROVIDERS: Admitting Provider Internal Medicine; Emergency Provider Emergency Medicine; PCP Electrodiagnostic Medicine; Visit Provider Internal Medicine
DX: K56.600 Partial intestinal obstruction, unspecified as to cause (principal); I10 Essential (primary) hypertension; J45.909 Unspecified asthma, uncomplicated; Z79.51 Long term (current) use of inhaled steroids
CPT/HCPCS: 36415; 71045; 74177; 80053; 82274; 83605; 83690; 83735; 85025; 96361; 96374; 96375; 99285; J2060; J2270; J2405; J3010; J7030; Q9967